=== PATIENT | male | born 1970 | race Two or more races ===

== ENCOUNTER 2024-09-02 15:09 | Outpatient (CLI) | payer BC | END 2024-09-02 23:59 | disposition home or self-care (01) | LOC: MRI 15:09 | PROVIDERS: ATTEND Physician Assistant Surgical | DX: S32.030A Wedge compression fracture of third lumbar vertebra, initial encounter for closed fracture (principal); M79.601 Pain in right arm; M51.17 Intervertebral disc disorders with radiculopathy, lumbosacral region; M43.8X6 Other specified deforming dorsopathies, lumbar region; M47.27 Other spondylosis with radiculopathy, lumbosacral region; M48.07 Spinal stenosis, lumbosacral region; X58.XXXA Exposure to other specified factors, initial encounter; Y93.9 Activity, unspecified; Y92.89 Other specified places as the place of occurrence of the external cause; Y99.8 Other external cause status | CPT/HCPCS: 72148 ==